=== PATIENT | female | born 1960 | race Caucasian/White ===

== ENCOUNTER → 2020-03-16 | Outpatient (REF) | LOC: ZLAB.WCH 18:04 | DX: Z01.89 Encounter for other specified special examinations (principal) ==

== ENCOUNTER → 2020-03-21 | Outpatient (REF) | LOC: ZLAB.WCH 10:55 | DX: Z01.89 Encounter for other specified special examinations (principal) ==

== ENCOUNTER 2020-03-23 10:14 | Emergency (ER) | payer BC ==
[~2020-03-23] VITALS: Ht 180.3 cm; Wt 86.4 kg
[2020-03-23 10:40] VITALS: TEMP 98.1
[2020-03-23 11:21] LABS: BASO # 0.1 (0.0-0.2); BASO % 1.3 % (0.0-2.0); EOS # 0.4 (0.0-0.7); EOS % 6.5 % (0-4.0); GRAN # 3.2 (1.4-6.5); GRAN % 58.7 % (42.2-75.2); HEMOGLOBIN 12.2 g/dl (12.5-16.0); LYMPH # 1.2 (1.2-3.4); LYMPH % 22.7 % (20.0-51.0); MEAN CELL VOLUME 83 fl (80.0-100.0); MEAN CORPUSCULAR HEMOGLOBIN 28 pg (27.0-31.0); MEAN CORPUSCULAR HGB CONC 33 g/dl (33.0-37.0); MEAN PLATELET VOLUME 9.9 fl (7.4-10.4); MONO # 0.6 (0.1-0.6); MONO % 10.6 % (1.7-9.3); PLATELET COUNT 318 K/mm3 (130-400); RED BLOOD COUNT 4.43 M/mm3 (4.10-5.30); REDCELL DISTRIBUTION WIDTH-CV 12.9 % (11.5-14.5)
[2020-03-23 11:22] LABS: HEMATOCRIT 36.9 % (37.0-47.0)
[2020-03-23 11:55] LABS: ALANINE AMINOTRANSFERASE 81 U/L (4-34); ALBUMIN 4.1 gm/dL (3.5-5.0); ALKALINE PHOSPHATASE 84 U/L (50-136); ANION GAP 8 mmol/L (7-16); AST,SGOT 97 U/L (15-37); BILIRUBIN,TOTAL 0.3 mg/dL (0.0-1.0); BLOOD UREA NITROGEN 14 mg/dL (7-17); CALCIUM 9.7 mg/dL (8.4-10.2); CARBON DIOXIDE 26 mmol/L (22-30); CHLORIDE 106 mmol/L (98-107); CREATINE KINASE 33 U/L (30-135); CREATININE, serum 0.89 (0.52-1.25); GLUCOSE 91 mg/dL (74-106); SODIUM 141 mmol/L (137-145); TOTAL PROTEIN 7.3 gm/dL (6.4-8.2)
[2020-03-23 12:10] LABS: TROPONIN-I < 0.012 ng/mL (0.000-0.035)
[2020-03-23 13:09] VITALS: BP 163/90; PULSE 89
== END 2020-03-23 13:15 | disposition home or self-care (01) ==
LOC: COL.ER 10:14
PROVIDERS: Nurse Practitioner
DX: U07.1 COVID-19 (principal)
CPT/HCPCS: J2060; J7030

== ENCOUNTER 2020-05-08 09:28 | Outpatient (CLI) | payer BC ==
--- NOTE | 2020-05-05 16:14 | NUR ---
LMOM WITH INSTRUCTIONS AND CALL BACK NUMBER
[2020-05-08] VITALS (7 sets, daily range): BP systolic 170–190; BP diastolic 100–114; PULSE 68–77
[~2020-05-08] VITALS: Ht 180.3 cm; Wt 92.6 kg
[2020-05-08] MEDS ORDERED: MOTRIN PM 38 MG1 TAB PO (10:22)
[2020-05-08] MEDS ORDERED: ONE-A-DAY ESSE1 EACH PO (10:23)
[2020-05-08] MEDS ORDERED: VITAMINC1000TA PO (10:24)
[2020-05-08] MEDS ORDERED: CLARITIN 1010 MG/TAB PO (10:24)
[2020-05-08] MEDS ORDERED: ESTROVEN MAX400 MCG PO (10:25)
[2020-05-08] MEDS ORDERED: NATURAL IRON65 MG PO ×2 (10:25→10:26)
[2020-05-08] MEDS ORDERED: SENOKOT S 50 MG1 TAB PO (10:27)
[2020-05-08 11:58] LABS: CSF APPEARANCE CLEAR; CSF COLOR COLORLESS; CSF RBC < 1 /mm3 (0-0)
[2020-05-08 12:03] LABS: GLUCOSE,CSF 54 mg/dL (40-70); TOTAL PROTEIN,CSF 35 mg/dL (15-45)
[2020-05-08 12:24] LABS: CSF MONONUCLEAR 100 % (70-100); CSF POLYMORPHONUCLEAR 0 % (0-6)
--- NOTE | 2020-05-08 12:39 | NUR ---
DC instructions reviewed. Pt expresses understanding. She is able to ambulate to restroom with steady gait. C/o mild ache over left forehead, states feels "like it's from my sinus." BPs discussed with pt. She states it has been elevated over last 10 wks since she had covid. She has follow up with PCP Renny. Blood pressure reading from today written out for pt so she can take them to follow up appt. Pt has tolerated PO fluids without issue. New bandaid placed over LP site. No signs of bleeding or drainage from site.
[2020-05-11 15:12] LABS: CSF OLIG BD INTERPRETATION 0 bands (<2); SE OLIGOCLONAL BANDING 4 bands (())
[2020-05-12 08:09] LABS: ALBUMIN CSF 19.4 mg/dL (<=27.0)
[2020-05-12 08:30] LABS: CSF,IGG 1.9 mg/dL (<=8.1)
[2020-05-12 08:39] LABS: ALBUMUN SERUM 4450 mg/dL (()); CSF SYNTHESIS RATE 0.78 mg/24 h (<=12); CSF-IGG INDEX 0.59 (<=0.85); IGG,SERUM 771 mg/dL (()); IGG/ALBUMIN SERUM 0.17 (<=0.40)
== END 2020-05-08 12:44 | disposition home or self-care (01) ==
LOC: COL.RAD 09:28
PROVIDERS: Psychiatry & Neurology Neurology
DX: G37.9 Demyelinating disease of central nervous system, unspecified (principal)

== ENCOUNTER → 2020-12-26 | Outpatient (CLI) | payer BC ==
[~2020-12-26] MED LIST: CLARITIN 1010 MG/TAB PO; ESTROVEN MAX400 MCG PO; MOTRIN PM 38 MG1 TAB PO; NATURAL IRON65 MG PO; ONE-A-DAY ESSE1 EACH PO; SENOKOT S 50 MG1 TAB PO; VITAMINC1000TA PO
== END ==
LOC: COL.RAD 10:38
DX: R06.02 Shortness of breath (principal)

== ENCOUNTER 2021-09-19 14:26 | Outpatient (RCR) | payer BC | END 2021-10-07 | disposition home or self-care (01) | LOC: WSST | DX: R49.0 Dysphonia (principal); R06.02 Shortness of breath; Z86.16 Personal history of COVID-19 ==